=== PATIENT | male | born 1990 | race Two or more races ===

== ENCOUNTER 2020-06-13 14:07 | Outpatient (CLI) | payer OTHER ==
--- NOTE | 2020-06-13 15:59 | MRI Report ---
PROCEDURE: Knee RT W/O INDICATIONS: SPRAIN OF ANTERIOR CRUCIAT TECHNIQUE: Noncontrast sagittal PD fast spin echo and T2 fast spin echo with fat saturation, sagittal 3-D gradie nt sequence with fat saturation; coronal T1 spin echo and PD fast spin echo with fat saturation, and axial PD fast spin echo with fat saturation through the knee. COMPARISON: None. FINDINGS: Image quality: Degraded by motion artifact and metallic artifact. Menisci: Vertically oriented high T2 signal intensity traverses the medial meniscal body and posterio r horn, demonstrating inferior articular surface extension. Lateral meniscus is intact. Cruciate ligaments: There is full-thickness tearing of the anterior cruciate ligament graft, which is obscured by metallic artifact. Posterior cruciate ligament is intact. Medial structures: The medial collateral ligament appears intact. Visualized portions of the pes ans erinus tendons appear normal. No abnormal bursal fluid. Lateral structures: The lateral collateral ligament, long and short heads of the biceps femoris tend on appear intact. The popliteus tendon appears normal. Iliotibial band appears normal. Anterior structures: The quadriceps and patellar tendons appear intact. Patellar alignment is clementine l. No femoral trochlear dysplasia or ventral trochlear prominence. Scarring and mild edema in the in frapatellar fat pad. Bones and cartilage: No bone marrow contusions or fractures. The cartilage of the medial and latera l femorotibial compartments, as well as the patellofemoral compartment, appears normal in thickness. Joint space: There is a small knee joint effusion. No Alberto?s cyst. Normal appearing synovial plica e are incidentally noted. IMPRESSION: 1. Full-thickness tearing of the anterior cruciate ligament graft. 2. Medial meniscal tear. 3. Small knee joint effusion. Reviewed by: Tiago Diego MD on 06/13/2020 3:58 PM PDT Approved by: Tiago Diego MD on 06/13/2020 3:58 PM PDT Station ID: [id number]
== END 2020-06-13 14:08 | disposition home or self-care (01) ==
LOC: DI 14:07
DX: S83.511A Sprain of anterior cruciate ligament of right knee, initial encounter (principal); S83.241A Other tear of medial meniscus, current injury, right knee, initial encounter

== ENCOUNTER 2020-09-30 06:09 | Day surgery (SDC) | payer OTHER ==
[~2020-09-30 06:09] MED LIST: LACTATED RINGERS 1,000 ML IV ONE
[2020-09-30] MEDS ORDERED: ceFAZolin 2 GM/50 ML 2 GM/50 ML BAG IV ONE (06:21)
[2020-09-30] MEDS ORDERED: fentaNYL 100 MCG/2 ML VIAL IVP PRN (07:01)
[2020-09-30] MEDS ORDERED: NALOXONE 0.4 MG/ML VIAL IVP PRN (07:01)
[2020-09-30] MEDS ORDERED: METOCLOPRAMIDE 10 MG/2 ML VIAL IVP PRN (07:01)
[2020-09-30] MEDS ORDERED: ATROPINE ABBOJECT 1 MG/10 ML SYRINGE IVP PRN (07:01)
[2020-09-30] MEDS ORDERED: MORPHINE 2 MG/ML CARPUJECT IVP PRN (07:01)
[2020-09-30] MEDS ORDERED: EPINEPHrine 1 MG/ML AMP ONE (07:01)
[2020-09-30] MEDS ORDERED: BUPIVACAINE 0.25% PF 30 ML VIAL ONE (07:01)
[2020-09-30] MEDS ORDERED: HYDROmorphone 0.5 MG/0.5 ML SYRINGE IVP PRN (07:01)
[2020-09-30] MEDS ORDERED: ONDANSETRON 4 MG/2 ML VIAL IVP PRN ×2 (07:01→11:27)
[2020-09-30] MEDS ORDERED: ePHEDrine 50 MG/ML VIAL IVP PRN (07:01)
[2020-09-30] MEDS ORDERED: BACITRACIN 50,000 UNIT VIAL ONE (07:01)
--- NOTE | 2020-09-30 07:04 | ANESTHESIA ---
Pre-Anesthesia VS, & Labs - Diagnosis Right Knee Instability - Procedure Right Knee ACL Reconstruction Vital Signs: Temp Pulse Resp BP Pulse Ox 36.2 C L 64 16 146/85 H 96 09/30/20 06:31 09/30/20 06:31 09/30/20 06:31 09/30/20 06:31 09/30/20 06:31 Height: 6 ft 2 in Weight (kg): 113.6 kg Body Mass Index: 32.1 BMI Classification: Obese Home Medications and Allergies Home Medications: Ambulatory Orders Fluoxetine HCl [Prozac] 40 mg PO DAILY 09/10/20 Active Medications Atropine Sulfate (Atropine Abboject 1 Mg/10 Ml Syringe) 0.5 mg IVP Q5M PRN PRN Reason: Bradycardia Stop: 10/01/20 07:02 Ephedrine Sulfate (Ephedrine 50 Mg/Ml Vial) 10 mg IVP Q5M PRN PRN Reason: HYPOTENSION Stop: 10/01/20 07:02 Fentanyl (Fentanyl 100 Mcg/2 Ml Vial) 25 - 50 mcg IVP Q5M PRN PRN Reason: BREAKTHROUGH PAIN (2nd Choice) Stop: 10/01/20 07:02 Hydromorphone HCl (Hydromorphone 0.5 Mg/0.5 Ml Syringe) 0.2 - 0.6 mg IVP Q5M PRN PRN Reason: PAIN (First Choice) Stop: 10/01/20 07:02 Lactated Ringer's (Lr) 1,000 mls @ 100 mls/hr IV .Q10H AHSAN Stop: 09/30/20 17:59 Metoclopramide HCl (Metoclopramide 10 Mg/2 Ml Vial) 10 mg IVP Q6HR PRN PRN Reason: N/V not relieved by Zofran Morphine Sulfate (Morphine 2 Mg/Ml Carpuject) 2 - 4 mg IVP Q5M PRN PRN Reason: PAIN (3rd Choice) Stop: 10/01/20 07:02 Naloxone HCl (Naloxone 0.4 Mg/Ml Vial) 0.1 mg IVP Q2M PRN PRN Reason: RESP RATE <8 Stop: 10/01/20 07:02 Ondansetron HCl (Ondansetron 4 Mg/2 Ml Vial) 4 mg IVP ONCE PRN PRN Reason: N/V (First Choice) Stop: 10/01/20 07:02 Fluoxetine HCl [Prozac] 40 mg PO DAILY 09/10/20 Allergies/Adverse Reactions: Allergies Allergy/AdvReac Type Severity Reaction Status Date / Time No Known Drug Allergies Allergy Verified 09/30/20 06:58 Anes History & Medical History - Anesthetic History Anesthesia Complications: reports: No previous complications Family history of Anesthesia Complications: Denies Family history of Malignant Hyperthermia: Denies - Medical History Cardiovascular: reports: None Pulmonary: reports: None Gastrointestinal: reports: None Urinary: reports: None Musculoskeletal: reports: Other Endocrine/Autoimmune: reports: None Skin: reports: None - Surgical History Orthopedic: ACL reconstruction Exam General: Alert, Oriented x3, Cooperative, No acute distress Mouth Openin Fingerbreadth Neck Mobility: Normal Mallampati classification: II Thyromental Distance: 4-6 cm Cardiovascular: Regular rate, Normal S1, Normal S2, No murmurs Mental/Cognitive Status: Alert/Oriented X3 Cognitive Status: Within normal limits Plan Anesthesia Type: General, Adductor Block Consent for Procedure(s) Verified and Reviewed: Yes Code Status: Attempt Resuscitation ASA classification: 2-Mild systemic disease Is this case an emergency?: No
[2020-09-30] MEDS ORDERED: KETOROLAC 30 MG/ML VIAL ONE (07:16)
[2020-09-30] MEDS ORDERED: PROPOFOL 200 MG/20 ML VIAL IVP ONE (07:16)
[2020-09-30] MEDS ORDERED: ROCURONIUM 50 MG/5 ML VIAL ONE (07:16)
[2020-09-30] MEDS ORDERED: DEXAMETHASONE 4 MG/ML VIAL ONE ×2 (07:16→07:31)
[2020-09-30] MEDS ORDERED: LIDOCAINE-MPF 2% 5 ML VIAL ONE (07:17)
[2020-09-30] MEDS ORDERED: ROPIVACAINE 0.5% PF 20 ML AMPULE ONE ×2 (07:17→10:59)
[2020-09-30] MEDS ORDERED: MIDAZOLAM 2 MG/2 ML VIAL ONE (07:18)
[2020-09-30] MEDS ORDERED: LACTATED RINGERS 1,000 ML IV SCH (08:00)
[2020-09-30] MEDS ORDERED: BUPIVACAINE 0.25% PF 30 ML VIAL SUBQ ONE (08:18)
[2020-09-30] MEDS ORDERED: EPINEPHrine 1 MG/ML AMP IR ONE (08:19)
[2020-09-30] MEDS ORDERED: fentaNYL 100 MCG/2 ML VIAL ONE (09:44)
[2020-09-30] MEDS ORDERED: LACTATED RINGERS 1,000 ML IV ONE (11:17)
[2020-09-30] MEDS ORDERED: oxyCODONE 5 MG TABLET PO PRN (11:27)
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
[2020-09-30] MEDS ORDERED: oxyCODONE 5 MG TABLET ONE (12:24)
[2020-09-30 12:45] VITALS: BP 136/81
--- NOTE | 2020-09-30 14:59 | ANESTHESIA POST OP EVALUATION ---
Anesthesia Post Eval - Post Anesthesia Eval Vitals: Last Vital Signs Temp 36.2 C L 09/30/20 12:45 Pulse 85 09/30/20 12:45 Resp 18 09/30/20 12:45 BP 136/81 H 09/30/20 12:45 Pulse Ox 98 09/30/20 12:45 CV Function Including HR & BP: positive: Stable Pain Control: positive: Satisfactory Nausea & Vomiting: positive: Negative Mental Status: positive: Baseline Respiratory Status: Airway Patent, Other Hydration Status: Satisfactory
== END 2020-09-30 06:10 | disposition home or self-care (01) ==
LOC: SDS 06:09
PROVIDERS: ATTEND Orthopaedic Surgery
DX: S83.511A Sprain of anterior cruciate ligament of right knee, initial encounter (principal); M23.221 Derangement of posterior horn of medial meniscus due to old tear or injury, right knee; E66.9 Obesity, unspecified; Z68.32 Body mass index [BMI] 32.0-32.9, adult
CPT/HCPCS: 29881; 29888; A9270; J0690; J7120

== ENCOUNTER 2021-02-05 16:10 | Outpatient (CLI) | payer OTHER ==
[2021-02-05 16:49] VITALS: BP 115/69
--- NOTE | 2021-02-05 16:49 | SLEEP CARE CONSULTATION ---
Information from patient questionnaire entered by Machelle Mcwilliams. I have reviewed and concur with the information entered by Machelle Mcwilliams. This document represents the service I personally performed and the decisions made by me, Nalini Ricks ARNP. History of Present Illness Service Date and Time: 02/05/2021 1610 Reason for Visit: New patient Chief Complaint: reports: Unrefreshed sleep, Snoring, Other (bruxism) Date of Onset: 1.5 years Usual bedtime: 2100 Time it takes to fall asleep: 3 min Snores at night: Yes Observed to quit breathing while asleep: No Sleeps alone due to snoring: Yes (sometimes) Number of times waking at night: 3 Reasons for waking at night: reports: Bathroom, Other (unknown; sometimes startles awake when napping). denies: Choking, Snoring, Gasping for air Toss, Turn, or Twitch while sleeping: Yes Recalls having dreams: No (Not usually) Usually gets out of bed at: 0440; weekends sometimes to 0800 Feels refreshed in the morning: No Morning headache: No (sometimes, goes away after a few hours; about 1 x a week) Sleepy or fatigued during the day: Yes Ever fallen asleep while driving: No Takes day naps: Yes (daily for about 1 hour) Dreams during day naps: Yes Prior sleep studies: No Additional HPI information: I had the pleasure of seeing NANDO MILLS today regarding the possibility of him having a sleep disorder. His current complaints are unrefreshed sleep and snoring. He states he snores loudly and sometimes has to sleep separately from his . He does not feel rested in the morning but states he is only moderately tired during the day. His has not told him that he pauses in breathing when sleeping. He has no gasping or choking in his sleep. He does awaken weekly with a morning headache that can last for a couple hours. He is an active sleeper, moving a lot while sleeping, and he has talked in his sleep. He is on duloxetine for depression. He has bruxism and is soon to see his dentist to be fitted with a mouth guard. He has no family history of sleep disordered breathing in his family. - Parasomnia Symptoms Ever been unable to move upon waking from sleep: No Walks in sleep: No Talks in sleep: Yes Ever acted out dreams in sleep: No Ever felt weak in the knees when startled or emotional: No Bothered by creepy, crawly, restless sensations in legs: No Problems with memory or concentration: Yes (both, little bit) Subjective Initial Henderson Sleepiness Scale score: 9 (in 2020) Past Medical History Past Medical History: reports: Depression, Other (Right knee ACL repair; stadium attendant appointment with dentist) Social History The patient's occupation is a [employer] in the [employer]. Patient is and lives in [place]. Have you smoked in the past 12 months: No Years of smokin Quit date: 2017 Alcohol use: Yes Alcohol amount and frequency: 3 drinks a week Caffeine use: Yes Caffeine amount and frequency: 2 drinks a week Family History Family history of sleep disordered breathing: No Allergies and Home Medications Drug allergies reviewed: Yes (NKDA) Home medication list reviewed: Yes Allergy and home medication list: Duloxetine Review of Systems Weight gain over past 5 years: 30 Cardiovascular: denies: high blood pressure Gastrointestinal: reports: diarrhea. denies: heartburn Neurological: denies: head trauma Psychiatric: reports: depression Ear/Nose/Throat: reports: dry mouth/throat (usually when wakes up), wisdom teeth removed. denies: injury to nose, tonsillectomy Immunologic: reports: sneezing (runny nose). denies: allergies to food or environment Physical Exam Blood Pressure: 115/69 Cuff size: wrist Heart Rate: 93 O2 Saturation: 96 Height: 6 ft 2 in Weight: 252 lb Body Mass Index: 32.3 BMI Classification: Obese Neck circumference: 17 (inches) Mouth and throat: narrow oropharynx Soft palate: long Hard palate: normal Uvula: normal Uvula visualization: 50% Mallampati Class II Tongue: enlarged in size with teeth sanches on lateral edges Tonsils: 1+ Chin and jaw: normal size and position Neck: normal w/o lymphadenopathy or thyromegaly Heart: regular rate and rhythm Lungs: clear bilaterally Impression and Plan 1. Suspected Obstructive Sleep Apnea-Hypopnea Syndrome, as suggested by a history of loud and irregular snoring, morning headache, unrefreshed sleep, and cognitive impairment. Narrow oropharynx and obesity are common predisposing factors for obstructive sleep apnea-hypopnea syndrome. I recommend proceeding to polysomnography to confirm the diagnosis and to assess severity. If the patient has significant sleep disordered breathing, a manual CPAP titration study will also be performed to find the optimal treatment pressure. I informed the patient of what the sleep studies involve and after some discussion, obtained agreement to proceed. The pathophysiology of obstructive sleep apnea-hypopnea syndrome was discussed with the patient and health risks of cardiovascular and cerebrovascular disease if not treated. [facility] brochure for obstructive sleep apnea-hypopnea syndrome given and reviewed. Risks of drowsy driving discussed in detail and patient advised to avoid long distance driving and to bone puller at the first sign of drowsiness. Patient agreed to plan. * Schedule polysomnography +- manual CPAP titration study and return in 1-2 weeks after the study to discuss result and initiate therapy. * Avoid long distance driving or driving when feeling sleepy. * Avoid alcohol, sedative and muscle relaxant around bedtime. * Attempt to lose weight. * Review instructions provided by trained office staff on how to prepare for the sleep study. * Return for follow-up after sleep study completed. Counseling Topics: Weight loss health impact Visit Type: In Office Time Spent with Patient (minutes): 30 Provider Statement: I spent 100% of the Face to Face Visit with the patient with greater than 50% spent counseling the patient and coordination of care.
== END 2021-02-05 16:11 | disposition home or self-care (01) ==
LOC: SC 16:10
PROVIDERS: ATTEND Nurse Practitioner Family
DX: R06.83 Snoring (principal); R51.9 Headache, unspecified; G47.8 Other sleep disorders; Z87.891 Personal history of nicotine dependence; E66.9 Obesity, unspecified; Z68.32 Body mass index [BMI] 32.0-32.9, adult
CPT/HCPCS: 99203; 99212

== ENCOUNTER 2021-02-13 08:42 | Outpatient (CLI) | payer OTHER | END 2021-02-13 08:43 | disposition home or self-care (01) | LOC: SC 08:42 | PROVIDERS: ATTEND Nurse Practitioner Family | DX: G47.33 Obstructive sleep apnea (adult) (pediatric) (principal); R09.02 Hypoxemia; E66.9 Obesity, unspecified; Z68.32 Body mass index [BMI] 32.0-32.9, adult | CPT/HCPCS: 95806 ==

== ENCOUNTER 2021-02-24 16:16 | Outpatient (CLI) | payer OTHER ==
--- NOTE | 2021-02-24 16:38 | SLEEP CARE CONSULTATION ---
Information from patient questionnaire entered by Machelle Mcwilliams. I have reviewed and concur with the information entered by Machelle Mcwilliams. This document represents the service I personally performed and the decisions made by me, Nalini Ricks ARNP. History of Present Illness Service Date and Time: 02/24/2021 1616 Initial [place] Sleepiness Scale score: 9 (in 2020) Current [place] Sleepiness Scale score: 8 Additional HPI information: NANDO MILLS returns for follow up and results of the recently performed home sleep study. I explained the pathophysiology behind obstructive sleep apnea. We then spent quite a bit of time discussing different treatment options. For mild obstructive sleep apnea, surgery and oral appliance are alternatives to nasal CPAP therapy but in moderate or severe cases, nasal CPAP is the most effective and reliable treatment. Because apnea is primarily in supine position, then positional management therapy could be effective. Methods discussed such as positioning with pillows, using a T-shirt with tennis balls in the back, and shown commercial products that have a pillow format on back to prevent supine sleep. I reviewed the impact of weight changes on sleep apnea and strongly recommended losing weight. After some discussion, the patient opted to go with the nasal CPAP therapy. Nasal autoCPAP set at 4-15 cmH20 will be ordered with rationale explained. A manual titration study will be ordered if unable to find optimal pressure with office adjustments. I explained how CPAP machine works with sample devices Respironics Dreamstation and ResFonix [id number] and what to expect when using the machine. Using CPAP every night in order to get used to it was emphasized. Patient advised to put CPAP mask on before getting into bed so as not to fall asleep without CPAP. To assist acclimation to CPAP use, it could also be used for a short time during day while reading or watching TV. The patient was instructed to call the CPAP supplier to discuss any mechanical problem that may occur. If the mask given is uncomfortable or is difficult to keep on through the night even with adjustment, contact the CPAP supplier as many will replace with another mask style if notified before 30 days. If snoring or perceives is not getting enough air or too much air from the machine, notify this office. [facility] patient education PAP tips reviewed and given to patient. Patient does not drink alcohol. Patient was cautioned about risks of drowsy driving until sleepiness symptoms resolve. Sleep Study - Results Type of Sleep Study: Home sleep study Prior sleep studies: No Polysomnography/Home Sleep Study results: Physician Impression: The quality of the study is good. The length of the study is adequate (> 240 minutes). Please also see the tabulated and graphic data. 1. Obstructive Sleep Apnea-Hypopnea (ICD-10 G47.33), mild, with an AHI of 7.1/hr and loyda SaO2 of 87%. During the study, the patient had 27 apneas (27 obstructive, 0 central, 0 mixed) and 21 hypopneas. The longest episode lasted 65.5 seconds. The respiratory events occurred almost exclusively during supine sleep (supine AHI was 15.9 and non-supine, 3.20). 2. Hypoxemia (ICD-10 R09.02), mild, with the lowest oxygen saturation of 87 % and 1.0 minutes with SaO2 under 90%. Baseline oxygen saturation was normal (Average oxygen saturation was 95%). Allergies and Home Medications Home medication list reviewed: Yes (no changes) Review of Systems Review of systems same as previous: Yes (no changes) Physical Exam Heart Rate: 69 O2 Saturation: 98 Height: 6 ft 2 in Weight: 250 lb Body Mass Index: 32.1 BMI Classification: Obese Impression and Plan 1. Obstructive Sleep Apnea-Hypopnea Syndrome, mild, with lowest oxygen saturation of 87%. Obviously this is the cause of the patients symptoms of unrefreshed sleep, and excessive daytime sleepiness. Positive pressure therapy could benefit depression. As mentioned above, the patient will be started on nasal autoCPAP therapy with pressure set at 4-15 cmH2O. A manual titration study will be completed if unable to find optimal treatment pressure with office adjustments. Compliance guidelines also reviewed. A copy of compliance guidelines will be given for reference at check out. Because the apnea is more severe supine, I instructed to avoid sleeping supine using pillow positioning until able to start CPAP use. * Nasal auto CPAP therapy, pressure at 4-15 cm H2O. * Attempt to lose weight. * Avoid alcohol consumption near bedtime. * Avoid supine sleep until using CPAP. * The patient is again cautioned about driving until sleepiness completely resolves. * Return one month after CPAP obtained. I will assess response to therapy and compliance at that time. Counseling Topics: Weight loss health impact Visit Type: In Office Time Spent with Patient (minutes): 20 Provider Statement: I spent 100% of the Face to Face Visit with the patient with greater than 50% spent counseling the patient and coordination of care.
== END 2021-02-24 16:17 | disposition home or self-care (01) ==
LOC: SC 16:16
PROVIDERS: ATTEND Nurse Practitioner Family
DX: G47.33 Obstructive sleep apnea (adult) (pediatric) (principal); E66.9 Obesity, unspecified; Z68.32 Body mass index [BMI] 32.0-32.9, adult
CPT/HCPCS: 99212; 99213

== ENCOUNTER 2021-04-21 08:21 | Outpatient (CLI) | payer OTHER ==
[2021-04-21 08:54] VITALS: BP 128/77
--- NOTE | 2021-04-21 08:54 | SLEEP CARE CONSULTATION ---
Information from patient questionnaire entered by Ngozi Hernandez. I have reviewed and concur with the information entered by Ngozi Hernandez. This document represents the service I personally performed and the decisions made by , Nalini Ricks ARNP. History of Present Illness Service Date and Time: 04/21/2021 08 Previous diagnosis: Mild AHI: 7.1 Reason for follow up: first compliance Equipment type: CPAP Equipment obtained from: Other ([facility]; got initial supplies) Mask style: Nasal pillows Mask brand: Resmed Backup mask available: No (will keep old mask when replaced) Last cushion change: 2 weeks Prior sleep studies: Yes Year and Where: 2020 - [facility] Type of Sleep Study: Home sleep study HPI additional information: NANDO MILLS was diagnosed to have mild, AHI 7.1, obstructive sleep apnea- hypopnea syndrome and returned today for CPAP therapy first compliance follow- up. CPAP Compliance Data - Data Reviewed with Patient Average duration of nightly device use: 7 hr 15 min Compliance rate %: 100 Current pressure setting (cmH2O): 4-15 (median 7.1, avg 10.4, max 12.3) Humidity settin Average residual AHI: 1.2 Central apnea: 0.4 Obstructive apnea: 0.5 Subjective Patient concerns: denies: aerophagia, mask discomfort, air blowing in eyes, mask leak noise, condensation in mask/hose, nasal congestion, dry mouth, nose, throat, epistaxis, other Observed to snore while using device: No Current pressure setting perceived as: comfortable On therapy, patient: reports: sleeping better, awakening more refreshed, being more awake and alert during the day, more rested overall. denies: drowsiness while driving Initial [place] Sleepiness Scale score: 9 (in 2020) Current [place] Sleepiness Scale score: 6 Allergies and Home Medications Home medication list reviewed: Yes (no changes) Review of Systems Review of systems same as previous: Yes (no changes) Physical Exam Blood Pressure: 128/77 Cuff size: wrist Heart Rate: 66 O2 Saturation: 98 Height: 6 ft 2 in Weight: 262 lb Body Mass Index: 33.6 BMI Classification: Obese Impression and Plan 1. Obstructive Sleep Apnea-Hypopnea Syndrome, mild, with excellent treatment compliance and good apnea control. On CPAP therapy, the patient has better sleep quality and is more rested overall. Patient feels he is getting used to it and has no complaints about bloating, nasal or oral dryness, skin irritation or condensation in the mask of the hose. The patients pressure will be changed to autoCPAP 7-12 cmH20 to reflect what pressures he has been using. Patient advised to contact me if pressure change is uncomfortable so that it can be adjusted. Goals for apnea control discussed. Patient's apnea severity and rationale for treatment to reduce apnea, improve sleep quality and reduce cardiovascular and cerebrovascular events was reviewed. I also reviewed the benefit of consistent device use of CPAP for depression. * Change auto CPAP pressure to 7-12 cmH2O * Notify me if snoring with mask or feeling that the pressure is too much or too little * Attempt to lose weight * Call this office if any problems using CPAP * Return for follow up in 1-2 months , or sooner if concerns arise Counseling Topics: Spare mask, Weight loss health impact Visit Type: In Office Time Spent with Patient (minutes): 20 Provider Statement: I spent 100% of the Face to Face Visit with the patient with greater than 50% spent counseling the patient and coordination of care.
== END 2021-04-21 08:22 | disposition home or self-care (01) ==
LOC: SC 08:21
PROVIDERS: ATTEND Nurse Practitioner Family
DX: G47.33 Obstructive sleep apnea (adult) (pediatric) (principal); E66.9 Obesity, unspecified; Z68.33 Body mass index [BMI] 33.0-33.9, adult
CPT/HCPCS: 99212; 99213

== ENCOUNTER 2021-06-02 08:54 | Outpatient (CLI) | payer OTHER ==
[2021-06-02 09:22] VITALS: BP 132/88
--- NOTE | 2021-06-02 09:22 | SLEEP CARE CONSULTATION ---
Information from patient questionnaire entered by Lizbeth Woodruff. I have reviewed and concur with the information entered by Lizbeth Woodruff. This document represents the service I personally performed and the decisions made by , Nalini Ricks ARNP. History of Present Illness Service Date and Time: 06/02/2021 0854 Previous diagnosis: Mild, Obstructive Sleep Apnea-Hypopnea Syndrome AHI: 7.1 Reason for follow up: other (6 Week with pressure change) Equipment type: CPAP Equipment obtained from: Other ([facility]; getting supplies as needed) Mask style: Nasal pillows (with chin strap) Mask brand: Resmed Backup mask available: Yes (old mask) Last cushion change: 1 month Prior sleep studies: Yes Year and Where: 2020 - [facility] Type of Sleep Study: Home sleep study HPI additional information: NANDO MILLS was diagnosed to have mild, AHI 7.1, obstructive sleep apnea- hypopnea syndrome and returned today for CPAP therapy 6 week pressure change follow-up. Sleep Study - Results Type of Sleep Study: Home sleep study Prior sleep studies: Yes Year and Where: 2020 - [facility] CPAP Compliance Data - Data Reviewed with Patient Average duration of nightly device use: 7 hours 46 minutes Compliance rate %: 98 Current pressure setting (cmH2O): 7-12 Average residual AHI: 0.9 Central apnea: 0.4 Obstructive apnea: 0.3 Subjective Patient concerns: denies: aerophagia, mask discomfort, air blowing in eyes, mask leak noise, condensation in mask/hose, nasal congestion, dry mouth, nose, throat, epistaxis, other Observed to snore while using device: No Current pressure setting perceived as: comfortable On therapy, patient: reports: sleeping better, awakening more refreshed, being more awake and alert during the day, more rested overall. denies: drowsiness while driving Initial [place] Sleepiness Scale score: 9 (in 2020) Current [place] Sleepiness Scale score: 3 Allergies and Home Medications Home medication list reviewed: Yes (no changes) Review of Systems Review of systems same as previous: Yes (no changes) Physical Exam Blood Pressure: 132/88 Cuff size: regular Heart Rate: 71 O2 Saturation: 97 Height: 6 ft 2 in Weight: 257 lb Body Mass Index: 33.0 BMI Classification: Obese Impression and Plan 1. Obstructive Sleep Apnea-Hypopnea Syndrome, mild, with good treatment compliance and excellent apnea control. On CPAP therapy, the patient has better sleep quality and is more rested overall. Patient is satisfied with current therapy and feels pressure is comfortable. Patient has no complaints or concerns with either CPAP or mask use. He continues to use a enable him to go back to sleep easier. Pillows mask with a chinstrap to keep his mouth closed while sleeping. 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 I encouraged him to use the ramp feature to reduce the pressure at that time to let him able to go back to sleep easier. Patient was encouraged to lose weight for their overall health and to reduce apneas. He voiced understanding and agreement with plan of care. Patient's apnea severity and rationale for treatment to reduce apnea, improve sleep quality and reduce cardiovascular and cerebrovascular events was reviewed. I also reviewed the benefit of consistent device use of CPAP for depression. * Continue auto CPAP pressure at 7-12 cmH2O * Notify me if snoring with mask or feeling that the pressure is too much or too little * Attempt to lose weight * Call this office if any problems using CPAP * Return for follow up in 3 months, or sooner if concerns arise Counseling Topics: Spare mask, Weight loss health impact Visit Type: In Office Time Spent with Patient (minutes): 16 Provider Statement: I spent 100% of the Face to Face Visit with the patient with greater than 50% spent counseling the patient and coordination of care.
== END 2021-06-02 08:55 | disposition home or self-care (01) ==
LOC: SC 08:54
PROVIDERS: ATTEND Nurse Practitioner Family
DX: G47.33 Obstructive sleep apnea (adult) (pediatric) (principal); E66.9 Obesity, unspecified; Z68.33 Body mass index [BMI] 33.0-33.9, adult
CPT/HCPCS: 99212

== ENCOUNTER 2021-08-20 12:55 | Outpatient (CLI) | payer OTHER ==
[2021-08-20 13:54] VITALS: BP 147/103
--- NOTE | 2021-08-20 13:54 | SLEEP CARE CONSULTATION ---
Information from patient questionnaire entered by Loco Gómez MA. I have reviewed and concur with the information entered by Loco Gómez MA. This document represents the service I personally performed and the decisions made by , Nalini Ricks ARNP. History of Present Illness Service Date and Time: 08/20/2021 1255 Previous diagnosis: Mild, Obstructive Sleep Apnea-Hypopnea Syndrome AHI: 7.1 Reason for follow up: three month Equipment type: CPAP Equipment obtained from: Other ([facility]; getting supplies as needed, [employer]) Mask style: Nasal pillows (with chin strap) Backup mask available: Yes (old mask) Last cushion change: 2 days ago Prior sleep studies: Yes Year and Where: 2020 - [facility] Type of Sleep Study: Home sleep study HPI additional information: NANDO MILLS was diagnosed to have mild, AHI 7.1, obstructive sleep apnea- hypopnea syndrome and returned today for CPAP therapy three month follow-up. Sleep Study - Results Type of Sleep Study: Home sleep study Prior sleep studies: Yes Year and Where: 2020 - [facility] CPAP Compliance Data - Data Reviewed with Patient Average duration of nightly device use: 8 HOURS 22 MINUTES Compliance rate %: 99 Current pressure setting (cmH2O): 7-12 Average residual AHI: 0.6 Central apnea: .3 Obstructive apnea: .2 Subjective Missed days of use due to: reports: other (WORK) Patient concerns: reports: other ([employer]). denies: aerophagia, mask discomfort, air blowing in eyes, mask leak noise, condensation in mask/hose, nasal congestion, dry mouth, nose, throat, epistaxis Observed to snore while using device: No Current pressure setting perceived as: comfortable On therapy, patient: reports: sleeping better, awakening more refreshed, being more awake and alert during the day, more rested overall. denies: drowsiness while driving Initial [place] Sleepiness Scale score: 9 (in 2020) Current [place] Sleepiness Scale score: 3 Allergies and Home Medications Home medication list reviewed: Yes (no changes) Review of Systems Review of systems same as previous: Yes (no changes) Physical Exam Vital signs obtained and entered by: Marcy GÓMEZ CMA AAGELACIO Blood Pressure: 147/103 (left, retake 142/98 left BCP) Cuff size: wrist Heart Rate: 76 O2 Saturation: 96 (with mask) Height: 6 ft 2 in Weight: 153 lb (with boots and uniform) Body Mass Index: 19.6 BMI Classification: Healthy weight Impression and Plan 1. Obstructive Sleep Apnea-Hypopnea Syndrome, mild, with excellent treatment compliance and excellent apnea control. On CPAP therapy, the patient has better sleep quality and is more rested overall. He is very satisfied with his CPAP therapy and has significant improvement of his sleep apnea. He has had some strap discomfort but he states it is not much at the back of his head. I advised him to look into barriers for the straps to reduce discomfort/irritation. He voiced understanding. Patient is at a healthy weight. Patient's apnea severity and rationale for treatment to reduce apnea, improve sleep quality and reduce cardiovascular and cerebrovascular events was reviewed. I also reviewed the benefit of consistent device use of CPAP for depression. * Continue auto CPAP pressure at 7-12 cmH2O * Notify me if snoring with mask or feeling that the pressure is too much or too little * Maintain a healthy weight * Call this office if any problems using CPAP * Return for follow up in 6 months, or sooner if concerns arise Counseling Topics: Spare mask, Weight control Visit Type: In Office Time Spent with Patient (minutes): 10 Provider Statement: I spent 100% of the Face to Face Visit with the patient with greater than 50% spent counseling the patient and coordination of care.
== END 2021-08-20 12:56 | disposition home or self-care (01) ==
LOC: SC 12:55
PROVIDERS: ATTEND Nurse Practitioner Family
DX: G47.33 Obstructive sleep apnea (adult) (pediatric) (principal)
CPT/HCPCS: 99212